=== PATIENT | male | born 1990 | race African-American/Black ===

== ENCOUNTER 2021-08-17 13:09 | Emergency (ER) | payer OTHER ==
[~2021-08-17] VITALS: Ht 177.8 cm; Wt 90.0 kg
[2021-08-17 14:08] LABS: BASOPHILS % 0.3 % (0.0-2.0); EOSINOPHILS % 2.1 % (0.0-5.0); HEMATOCRIT. 44.6 % (42.0-52.0); LYMPHOCYTES % 36.3 % (20.0-50.0); MEAN CORPUSCULAR HEMOGLOBIN 29.9 pg (28.0-32.0); MEAN PLATELET VOLUME 8.2 fl (7.4-10.4); NEUTROPHILS % 52.3 % (40.0-76.0); PLATELET 209 x1000/uL (130-400); RED BLOOD CELL COUNT 5.01 mill/uL (4.7-6.1); RED CELL DISTRIBUTION WIDTH 12.9 % (11.6-14.6)
[2021-08-17 14:17] LABS: CHLORIDE 106 mEq/L (98-107)
[2021-08-17 17:15] VITALS: BP 144/85
[2021-08-17] MEDS ORDERED: IBUP-2028 MT (18:41)
== END 2021-08-17 19:02 | disposition home or self-care (01) ==
LOC: ER 13:09
DX: R07.89 Other chest pain (principal)
CPT/HCPCS: 36415; 71045; 80053; 84484; 85025; 85379; 93005; 99285